=== PATIENT | female | born 1950 | race Caucasian/White ===

== ENCOUNTER 2019-01-20 16:05 | Outpatient (REF) | payer MEDICARE, BC, SELFPAY ==
--- NOTE | 2019-01-20 14:20 | PAPFT_PTH ---
PATIENT: Rosa Jang LOC: [facility] U#:[id number] AGE/SX: 69/F ROOM: RE01/20/[address]: Alexa Elliott : 1950 BED: DIS: 01/20/2019 SPEC #: [id number] RECD: 01/21/19 13:10 STATUS: JARRET REThom #: [id number] RYAN: 01/20/19 14:[address]: Alexa Elliott DEPT: [facility] Cytology RECD BY: Kimberly Ram ENTERED: 01/21/19 13:10 SP TYPE: PAPFT OTHR DR: Anibal Lepe Tissues: 1 - CX/ENDOCX FOR PAP SMEARS Procedures: PAP THIN PREP/[facility] Screening HPV DNA PROBE Comments: [id number]
== END 2019-01-20 16:25 ==
LOC: NCHCN 16:05
PROVIDERS: PCP Internal Medicine; Visit Provider Internal Medicine
DX: Z00.00 Encounter for general adult medical examination without abnormal findings (principal); Z12.4 Encounter for screening for malignant neoplasm of cervix; Z11.51 Encounter for screening for human papillomavirus (HPV)
CPT/HCPCS: 88142; 87624

== ENCOUNTER 2021-01-11 12:06 | Outpatient (REF) | payer MEDICARE, BC, SELFPAY ==
--- NOTE | 2021-01-11 14:40 | PAPFT_PTH ---
PATIENT: Rosa Jang LOC: [facility] U#:[id number] AGE/SX: 71/F ROOM: RE01/11/[address]: Alexa Elliott : 1950 BED: DIS: 01/11/2021 SPEC #: [id number] RECD: 01/14/21 12:54 STATUS: JARRET REThom #: [id number] RYAN: 01/11/21 14:[address]: Alexa Elliott DEPT: [facility] Cytology RECD BY: Kimberly Ram ENTERED: 01/14/21 12:55 SP TYPE: PAPFT OTHR DR: Anibal Lepe Tissues: 1 - CX/ENDOCX FOR PAP SMEARS Procedures: PAP THIN PREP/[facility] Screening HPV DNA PROBE Comments: [id number]
== END 2021-01-11 12:07 | disposition home or self-care (01) ==
LOC: NCHCN 12:06
PROVIDERS: PCP Internal Medicine; Visit Provider Internal Medicine
DX: Z12.4 Encounter for screening for malignant neoplasm of cervix (principal); Z11.51 Encounter for screening for human papillomavirus (HPV); Z01.419 Encounter for gynecological examination (general) (routine) without abnormal findings
CPT/HCPCS: 88142; 87624